=== PATIENT | male | born 1995 | race Caucasian/White ===

== ENCOUNTER 2024-08-28 13:35 | Inpatient (IN) | payer OTHER, MEDICAID ==
[~2024-08-28] VITALS: Ht 167.6 cm; Wt 68.2 kg
[2024-08-28] MEDS: MORPHINE SULFATE 4 MG/ML INJ (FOR IV/IM USE) IV STA (14:24)
[2024-08-28] MEDS: ONDANSETRON HCL 4MG/2ML INJ IV STA (14:25)
[2024-08-28] MEDS: SODIUM CHLORIDE 0.9% 1,000 ML IV ONE (14:25)
[2024-08-28 14:26] LABS: HEMATOCRIT. 27.9 % (42.0-52.0); HEMOGLOBIN. 9.1 g/dL (14.0-18.0); MEAN CORPUSCULAR HEMOGLOBIN 29.6 pg (28.0-32.0); MEAN CORPUSCULAR HGB CONC 32.8 g/dL (31.0-37.0); MEAN CORPUSCULAR VOLUME 90.2 fL (80.0-94.0); MEAN PLATELET VOLUME 9.9 fl (7.4-10.4); PLATELET 172 x1000/uL (130-400); RED BLOOD CELL COUNT 3.09 mill/uL (4.7-6.1); RED CELL DISTRIBUTION WIDTH 14.1 % (11.6-14.6); WHITE BLOOD COUNT 3.5 x1000/uL (4.5-11.0)
[2024-08-28 14:31] LABS: CHLORIDE 108 mEq/L (98-107); POTASSIUM 4.4 mEq/L (3.5-5.1); SODIUM 138 mEq/L (136-145)
[2024-08-28 14:32] LABS: CARBON DIOXIDE 25 mEq/L (21-32); DIFFERENTIAL COMMENT 1
[2024-08-28 14:33] LABS: CALCIUM 8.8 mg/dL (8.7-10.4)
[2024-08-28 14:37] LABS: CREATININE 0.8 mg/dL (0.6-1.3); ETHANOL BLOOD < 10 mg/dL (<10); GLUCOSE 119 mg/dL (70-105); UREA NITROGEN BLOOD 16 mg/dL (9-23)
[2024-08-28 14:39] LABS: ALANINE AMINOTRANSFERASE 23 IU/L (10-49); ALBUMIN 3.4 g/dL (3.2-4.8); ASPARTATE AMINOTRANSFERASE 35 IU/L (<34); BILIRUBIN DIRECT 0.2 mg/dL (<=3.0); BILIRUBIN TOTAL 0.4 mg/dL (0.1-1.0); PROTEIN TOTAL 7.6 g/dL (6.0-8.3)
[2024-08-28 14:53] LABS: INR 1.1; PROTHROMBIN TIME 11.4 sec (9.6-11.0)
[2024-08-28] MEDS: PANTOPRAZOLE SODIUM 40 MG/VIAL IV NR (15:56)
[2024-08-28] MEDS ORDERED: PANTOPRAZOLE 80 MG in SODIUM CHLORIDE 0.9% 100 ML IV SCH (16:30)
[2024-08-28 16:48] LABS: HEMATOCRIT 23.1 % (42.0-52.0); HEMOGLOBIN 7.6 g/dL (14.0-18.0); MEAN CORPUSCULAR HEMOGLOBIN 29.2 pg (28.0-32.0); MEAN CORPUSCULAR HGB CONC 33.1 g/dL (31.0-37.0); MEAN CORPUSCULAR VOLUME 88.3 fL (80.0-94.0); PLATELET 150 x1000/uL (130-400); RED BLOOD CELL COUNT 2.62 mill/uL (4.7-6.1); RED CELL DISTRIBUTION WIDTH 13.5 % (11.6-14.6); WHITE BLOOD COUNT 3.9 x1000/uL (4.5-11.0)
[2024-08-28 17:15] LABS: PLATELET ESTIMATE NORMAL
[2024-08-28 18:00] VITALS: BP 102/52; PULSE 92; RESP 16; TEMP 36.7; O2SAT 100
[2024-08-28] MEDS ORDERED: MORPHINE SULFATE 2 MG/ML INJ (NOT FOR IM USE) IV PRN (18:00)
[2024-08-28] MEDS ORDERED: HYDRALAZINE 20MG/ML VIAL IV PRN (18:00)
[2024-08-28] MEDS ORDERED: IPRATROPIUM/ALBUTEROL 0.5-3(2.5)MG/3ML NEB NEB PRN (18:00)
[2024-08-28] MEDS ORDERED: ONDANSETRON HCL 4MG/2ML INJ IV PRN (18:00)
[2024-08-28] MEDS ORDERED: ACETAMINOPHEN 325MG TABLET PO PRN (18:00)
[2024-08-28] MEDS ORDERED: PANTOPRAZOLE SODIUM 40 MG/VIAL IV SCH (18:30)
[2024-08-28 18:51] VITALS: BP 94/49; PULSE 87; O2SAT 100
[2024-08-28] MEDS: SODIUM CHLORIDE 0.9% 1,000 ML IV SCH (18:51)
[2024-08-28] MEDS ORDERED: ZOLPIDEM TARTRATE 5MG TABLET PO PRN (19:45)
[2024-08-28] MEDS ORDERED: CLONIDINE 0.1MG TABLET PO PRN (19:45)
[2024-08-28] MEDS ORDERED: GUAIFENESIN 200MG/10ML SUGAR FREE UDC PO PRN (19:45)
[2024-08-28] MEDS ORDERED: MAGNESIUM/ALUMINUM HYDROXIDE/SIMETHICONE 30ML UDC PO PRN (19:45)
[2024-08-28] MEDS ORDERED: DIPHENHYDRAMINE 50MG/ML VIAL IV PRN (19:45)
[2024-08-28] MEDS ORDERED: IOHEXOL-350 100 ML BOTTLE ONE (20:10)
[2024-08-28] MEDS: DEXT 5%/0.9% NACL 1,000 ML IV SCH (20:41)
[2024-08-28] MEDS: PANTOPRAZOLE 80 MG in SODIUM CHLORIDE 0.9% 100 ML IV SCH (21:04)
[2024-08-28 21:26] LABS: HEMATOCRIT 22.8 % (42.0-52.0); HEMOGLOBIN 7.5 g/dL (14.0-18.0)
[2024-08-28 22:02] VITALS: BP 93/50; PULSE 97; RESP 19; TEMP 37.00296
[2024-08-28 22:25] VITALS: BP 90/51; PULSE 87; RESP 18; TEMP 36.89184
[2024-08-28 22:31] LABS: TRIGLYCERIDE 144 mg/dL (0-150)
[2024-08-28 22:32] LABS: LDL CHOLESTEROL 50 mg/dL (5-100)
[2024-08-28 22:33] LABS: CHOLESTEROL 89 mg/dL (<200); HDL CHOLESTEROL < 20 mg/dL (>55)
[2024-08-28 22:35] LABS: T4 FREE 0.97 ng/dL (0.89-1.76); THYROID STIMULATING HORMONE 1.45 uIU/mL (0.55-4.78)
[2024-08-29] VITALS (68 sets, daily range): BP systolic 80–127; BP diastolic 58–89; PULSE 75–109; RESP 10–24; TEMP 36.3–37.00296; O2SAT 93–100
[2024-08-29 02:31] LABS: HEMATOCRIT 22.4 % (42.0-52.0); HEMOGLOBIN 7.7 g/dL (14.0-18.0)
[2024-08-29 08:38] LABS: HEMATOCRIT 23.8 % (42.0-52.0); HEMOGLOBIN 7.9 g/dL (14.0-18.0)
[2024-08-29] MEDS ORDERED: SODIUM CHLORIDE 0.9% 1,000 ML IV ONE (08:45)
[2024-08-29 09:16] LABS: HEPATITIS B SURFACE ANTIGEN NEGATIVE (Negative)
[2024-08-29 09:18] LABS: CARBON DIOXIDE 25 mEq/L (21-32); CHLORIDE 110 mEq/L (98-107); POTASSIUM 3.8 mEq/L (3.5-5.1); SODIUM 140 mEq/L (136-145)
[2024-08-29 09:20] LABS: CALCIUM 7.9 mg/dL (8.7-10.4); CREATINE KINASE MB FRACTION < 0.5 ng/mL (0.5-3.6)
[2024-08-29 09:24] LABS: CREATINE KINASE 120 IU/L (46-171)
[2024-08-29 09:25] LABS: CREATININE 0.6 mg/dL (0.6-1.3); GLUCOSE 108 mg/dL (70-105); UREA NITROGEN BLOOD 18 mg/dL (9-23)
[2024-08-29 09:36] LABS: HEPATITIS A AB IGM NEGATIVE (Negative)
[2024-08-29 09:37] LABS: HEPATITIS B CORE AB IGM NEGATIVE (Negative); HEPATITIS C AB NON REACTIVE (Neg) (Negative)
[2024-08-29 09:56] LABS: TROPONIN I HIGH SENSITIVITY < 4 ng/L (3.0-53)
[2024-08-29 13:25] LABS: HEMATOCRIT 23.8 % (42.0-52.0); HEMOGLOBIN 7.8 g/dL (14.0-18.0)
[2024-08-29 13:49] LABS: CHLORIDE 108 mEq/L (98-107); POTASSIUM 3.6 mEq/L (3.5-5.1); SODIUM 142 mEq/L (136-145)
[2024-08-29 13:50] LABS: CARBON DIOXIDE 24 mEq/L (21-32)
[2024-08-29 13:55] LABS: CREATININE 0.7 mg/dL (0.6-1.3); GLUCOSE 88 mg/dL (70-105)
[2024-08-29 13:56] LABS: UREA NITROGEN BLOOD 18 mg/dL (9-23)
[2024-08-29 13:58] LABS: PHOSPHORUS 2.3 mg/dL (2.5-4.9)
[2024-08-29 15:09] LABS: FERRITIN 96 ng/mL (22-322); VITAMIN B12 SERUM 311 pg/mL (211-911)
[2024-08-29 15:45] LABS: CLARITY URINE CLEAR (CLEAR); COLOR URINE YELLOW (YELLOW); GLUCOSE URINE NEGATIVE (NEGATIVE); KETONES URINE NEGATIVE (NEGATIVE); LEUKOCYTE ESTERASE URINE NEGATIVE (NEGATIVE); NITRITE URINE NEGATIVE (NEGATIVE); OCCULT BLOOD URINE NEGATIVE (NEGATIVE); PH URINE 6.5 (4.5-8.0); PROTEIN URINE NEGATIVE (NEGATIVE); SPECIFIC GRAVITY URINE 1.015 (1.005-1.030); UROBILINOGEN URINE 0.2 E.U./dL (0.2-1.0)
[2024-08-29 15:46] LABS: IRON 121 ug/dL (65-175)
[2024-08-29 15:49] LABS: GAMMA GLUTAMYL TRANSPEPTIDASE 13 IU/L (<73); TOTAL IRON BINDING CAPACITY 198 ug/dl (250-425)
[2024-08-29 15:56] LABS: CHLORIDE 108 mEq/L (98-107); POTASSIUM 3.6 mEq/L (3.5-5.1); SODIUM 141 mEq/L (136-145)
[2024-08-29 15:57] LABS: CARBON DIOXIDE 26 mEq/L (21-32)
[2024-08-29 15:59] LABS: *AMPHETAMINES SCREEN URINE NEGATIVE (NEGATIVE); *BARBITURATES SCREEN URINE NEGATIVE (NEGATIVE); *BENZODIAZEPINES SCREEN URINE NEGATIVE (NEGATIVE); *COCAINE SCREEN URINE NEGATIVE (NEGATIVE); METHADONE URINE SCREEN NEGATIVE (NEGATIVE)
[2024-08-29 16:00] LABS: CANNABINOID URINE SCREEN NEGATIVE (NEGATIVE); ECSTASY MDMA SCREEN URINE NEGATIVE (NEGATIVE); OPIATES URINE SCREEN NEGATIVE (NEGATIVE); PHENCYCLIDINE URINE SCREEN NEGATIVE (NEGATIVE)
[2024-08-29 16:01] LABS: CREATINE KINASE MB FRACTION 0.6 ng/mL (0.5-3.6)
[2024-08-29 16:02] LABS: CREATININE 0.6 mg/dL (0.6-1.3); GLUCOSE 90 mg/dL (70-105); UREA NITROGEN BLOOD 17 mg/dL (9-23)
[2024-08-29 16:04] LABS: CREATINE KINASE 123 IU/L (46-171); TROPONIN I HIGH SENSITIVITY < 4 ng/L (3.0-53)
[2024-08-29] MEDS: MAGNESIUM 2 G PREMIX 50 ML IV NR (16:05)
[2024-08-29] MEDS: CYANOCOBALAMIN 1000MCG TABLET PO SCH (18:03)
[2024-08-29 19:30] LABS: HEMATOCRIT 23.3 % (42.0-52.0); HEMOGLOBIN 7.7 g/dL (14.0-18.0)
[2024-08-30] VITALS (36 sets, daily range): BP systolic 94–127; BP diastolic 52–91; PULSE 80–103; RESP 10–20; TEMP 36.5–36.7; O2SAT 96–100
[2024-08-30 01:00] LABS: HEMATOCRIT 22.1 % (42.0-52.0); HEMOGLOBIN 7.4 g/dL (14.0-18.0)
[2024-08-30 05:40] LABS: CALCIUM 8.6 mg/dL (8.7-10.4); CARBON DIOXIDE 26 mEq/L (21-32); CHLORIDE 109 mEq/L (98-107); POTASSIUM 4.3 mEq/L (3.5-5.1); SODIUM 142 mEq/L (136-145)
[2024-08-30 05:46] LABS: CREATININE 0.6 mg/dL (0.6-1.3); GLUCOSE 99 mg/dL (70-105); UREA NITROGEN BLOOD 13 mg/dL (9-23)
[2024-08-30] MEDS: PANTOPRAZOLE SODIUM 40 MG/VIAL IV SCH (08:18)
[2024-08-30] MEDS ORDERED: PANT40SU MT (13:58)
[2024-09-01 10:12] LABS: % CD 3 POS. LYMPHOCYTES 68.8 % (57.5-86.2); % CD 4 POS. LYMPHOCYTES 9.2 % (30.8-58.5); % CD 8 POS. LYMPH 44.2 % (12.0-35.5); CD4/CD8 RATIO 0.21 (0.92-3.72)
[2024-09-02 08:08] LABS: HIV 1 ABS Reactive (Non Reactive); HIV 2 ABS Non Reactive (Non Reactive); HIV SCREEN 4G Preliminary Reactive (Non Reactive); INTERPRETATION HIV-1 Positive (.)
[2024-09-02 13:12] LABS: SACCHAROMYCES CEREVISIAE IGM 25.3 Units (0.0-24.9)
[2024-09-03 09:11] LABS: ATYPICAL pANCA <1:20 titer (Neg:<1:20)
[2024-09-03 13:07] LABS: SACCHAROMYCES CEREVISIAE IGG 23.6 Units (0.0-24.9)
[2024-09-05 04:08] LABS: *HIV1 RNA LOG10 6.626 (.)
== END 2024-08-30 19:44 | disposition home or self-care (01) | DRG 244 ==
LOC: ER 13:35 → EDBEDREQ 17:10 → 5WST 17:21 → CVICU 22:35 → 8WST 08-30 09:56
PROVIDERS: ADMIT Hospitalist; ATTEND Hospitalist
PROC: 30233N1 Transfusion of Nonautologous Red Blood Cells into Peripheral Vein, Percutaneous Approach (ICD-10-PCS; principal; 2024-08-28)
DX: K57.31 Diverticulosis of large intestine without perforation or abscess with bleeding (principal); I31.39 Other pericardial effusion (noninflammatory); B20 Human immunodeficiency virus [HIV] disease; E83.39 Other disorders of phosphorus metabolism; D64.9 Anemia, unspecified; D72.819 Decreased white blood cell count, unspecified; D72.825 Bandemia; E83.42 Hypomagnesemia; K59.09 Other constipation; Z79.899 Other long term (current) drug therapy
CPT/HCPCS: 36415; 36430; 71045; 74174; 74176; 80048; 80061; 80076; 80305; 80320; 81003; 82270; 82550; 82553; 82607; 82728; 82746; 82962; 82977; 83036; 83540; 83550; 83735; 84100; 84439; 84443; 84484; 85014; 85018; 85025; 85027; 85044; 86256; 86359; 86360; 86671; 86701; 86702; 86705; 86709; 86850; 86900; 86920; 87015; 87045; 87340; 87389; 87427; 87449; 87493; 87536; 89055; 93970; 99291; J2270; J2405; J2470; J3475; J7030; J7042; J7050; P9016; Q9967; G0480

== ENCOUNTER 2024-10-07 17:57 | Emergency (ER) | payer MEDICAID ==
[~2024-10-07] VITALS: Ht 170.2 cm; Wt 75.0 kg
[~2024-10-07 17:57] MED LIST: PANT40SU MT
[2024-10-07 18:05] VITALS: O2SAT 100
[2024-10-07] MEDS: ACETAMINOPHEN 325MG TABLET PO STA (18:05)
[2024-10-07 18:49] LABS: BASOPHILS % 0.6 % (0.0-2.0); EOSINOPHILS % 1.1 % (0.0-5.0); HEMATOCRIT. 28.1 % (42.0-52.0); HEMOGLOBIN. 9.2 g/dL (14.0-18.0); LYMPHOCYTES % 12.5 % (20.0-50.0); MEAN CORPUSCULAR HEMOGLOBIN 27.6 pg (28.0-32.0); MEAN CORPUSCULAR HGB CONC 32.7 g/dL (31.0-37.0); MEAN CORPUSCULAR VOLUME 84.3 fL (80.0-94.0); MEAN PLATELET VOLUME 9.3 fl (7.4-10.4); MONOCYTES % 9.8 % (2.0-8.0); PLATELET 295 x1000/uL (130-400); RED BLOOD CELL COUNT 3.34 mill/uL (4.7-6.1); RED CELL DISTRIBUTION WIDTH 15.1 % (11.6-14.6); WHITE BLOOD COUNT 9.6 x1000/uL (4.5-11.0)
[2024-10-07 18:57] LABS: CHLORIDE 104 mEq/L (98-107); POTASSIUM 3.7 mEq/L (3.5-5.1); SODIUM 139 mEq/L (136-145)
[2024-10-07 18:58] LABS: CALCIUM 8.8 mg/dL (8.7-10.4); CARBON DIOXIDE 25 mEq/L (21-32)
[2024-10-07 19:03] LABS: CREATININE 1.1 mg/dL (0.6-1.3); GLUCOSE 76 mg/dL (70-105); UREA NITROGEN BLOOD 8 mg/dL (9-23)
[2024-10-07 19:04] LABS: ETHANOL BLOOD < 10 mg/dL (<10); PROTHROMBIN TIME 11.1 sec (9.6-11.0)
[2024-10-07 19:06] LABS: TROPONIN I HIGH SENSITIVITY 10 ng/L (3.0-53)
[2024-10-07 19:23] VITALS: BP 120/66; PULSE 98; RESP 14; TEMP 37; O2SAT 100
== END 2024-10-07 19:25 | disposition home or self-care (01) ==
LOC: ER 17:57
DX: R07.89 Other chest pain (principal); I25.10 Atherosclerotic heart disease of native coronary artery without angina pectoris; Z79.899 Other long term (current) drug therapy
CPT/HCPCS: 36415; 71045; 80048; 80320; 84484; 85025; 93005; 99285; G0480

== ENCOUNTER 2024-10-30 10:26 | Emergency (ER) | payer MEDICAID ==
[~2024-10-30] VITALS: Ht 170.2 cm; Wt 119.0 kg
[2024-10-30 10:49] VITALS: O2SAT 100
[2024-10-30 11:10] LABS: BASOPHILS % 0.6 % (0.0-2.0); DIFFERENTIAL COMMENT 0; EOSINOPHILS % 0.9 % (0.0-5.0); HEMATOCRIT. 30.2 % (42.0-52.0); HEMOGLOBIN. 9.8 g/dL (14.0-18.0); LYMPHOCYTES % 41.6 % (20.0-50.0); MEAN CORPUSCULAR HGB CONC 32.5 g/dL (31.0-37.0); MEAN CORPUSCULAR VOLUME 79.9 fL (80.0-94.0); MEAN PLATELET VOLUME 8.1 fl (7.4-10.4); MONOCYTES % 9.3 % (2.0-8.0); NEUTROPHILS % 47.6 % (40.0-76.0); PLATELET 436 x1000/uL (130-400); RED BLOOD CELL COUNT 3.78 mill/uL (4.7-6.1); RED CELL DISTRIBUTION WIDTH 16.2 % (11.6-14.6); WHITE BLOOD COUNT 5.5 x1000/uL (4.5-11.0)
[2024-10-30 11:33] LABS: CHLORIDE 100 mEq/L (98-107); POTASSIUM 4.1 mEq/L (3.5-5.1); SODIUM 134 mEq/L (136-145)
[2024-10-30 11:34] LABS: CARBON DIOXIDE 25 mEq/L (21-32)
[2024-10-30 11:35] LABS: CALCIUM 9.4 mg/dL (8.7-10.4)
[2024-10-30 11:39] LABS: GLUCOSE 82 mg/dL (70-105); UREA NITROGEN BLOOD 12 mg/dL (9-23)
[2024-10-30] MEDS: KETOROLAC 30MG/ML VIAL IM STA (12:11)
[2024-10-30 12:20] LABS: TROPONIN I HIGH SENSITIVITY < 4 ng/L (3.0-53)
[2024-10-30 12:33] VITALS: BP 121/78; PULSE 84; RESP 19; TEMP 36.8; O2SAT 99
[2024-10-30] MEDS ORDERED: IBUP-2028 MT (12:43)
[2024-10-30] MEDS ORDERED: FERR325T6 MT (12:56)
== END 2024-10-30 12:52 | disposition home or self-care (01) ==
LOC: ER 10:26
DX: R07.89 Other chest pain (principal)
CPT/HCPCS: 99285; 71045; 80048; 85025; 84484; 36415; 93005; 96372; J1885

== ENCOUNTER 2025-02-18 16:07 | Emergency (ER) | payer OTHER, MEDICAID ==
[~2025-02-18] VITALS: Ht 172.7 cm; Wt 73.0 kg
[~2025-02-18 16:07] MED LIST changes: +FERR325T6 MT; +IBUP-2028 MT
[2025-02-18 16:13] VITALS: O2SAT 100
[2025-02-18] MEDS ORDERED: IBUP-1455 MT (18:24)
[2025-02-18 18:45] VITALS: BP 121/78; PULSE 89; RESP 16; TEMP 37; O2SAT 100
== END 2025-02-18 18:46 | disposition home or self-care (01) ==
LOC: ER 16:07
DX: M54.2 Cervicalgia (principal); M25.562 Pain in left knee; Z79.899 Other long term (current) drug therapy; Z79.1 Long term (current) use of non-steroidal anti-inflammatories (NSAID); V89.2XXA Person injured in unspecified motor-vehicle accident, traffic, initial encounter; Y93.89 Activity, other specified; Y92.410 Unspecified street and highway as the place of occurrence of the external cause; Y99.8 Other external cause status
CPT/HCPCS: 73562; 99284